=== PATIENT | female | born 1950 | race Caucasian/White ===

== ENCOUNTER 2018-10-24 06:44 | Day surgery (SDC) | payer MEDICARE ==
[~2018-10-24] VITALS: Ht 177.8 cm; Wt 121.0 kg
[2018-10-24] MEDS ORDERED: Omeprazole20 M1 (07:48)
[2018-10-24] MEDS ORDERED: HYDCHL12.5 (07:48)
[2018-10-24] MEDS ORDERED: VENL75ER (07:49)
[2018-10-24] MEDS ORDERED: ATOR20 (07:49)
[2018-10-24] MEDS ORDERED: 24HR ALLERGY REL5 MG (07:49)
[2018-10-24] MEDS ORDERED: ASPI81CH (07:50)
[2018-10-24] MEDS ORDERED: PRED20 (07:51)
--- NOTE | 2018-10-24 13:21 | NUR ---
PT DRESSED, IV DC'D TIP INTACT, R RADIAL ACCESS SITE DRESSING IN PLACE WITH SPLINT TO R WRIST, PT DC'D BY WC WITH DRIVING PT HOME
== END 2018-10-24 13:27 | disposition home or self-care (01) ==
LOC: MHTC 06:44
DX: R94.39 Abnormal result of other cardiovascular function study (principal); R07.9 Chest pain, unspecified; I10 Essential (primary) hypertension; E78.5 Hyperlipidemia, unspecified; E66.01 Morbid (severe) obesity due to excess calories; K21.9 Gastro-esophageal reflux disease without esophagitis; Z91.041 Radiographic dye allergy status; Z79.899 Other long term (current) drug therapy; Z79.82 Long term (current) use of aspirin; Z87.891 Personal history of nicotine dependence
CPT/HCPCS: 93458; 99152; 99153; C1769; C1894; J1200; J1644; J1720; J2250; J3010; J3490; J7030; Q9967

== ENCOUNTER 2020-09-09 08:34 | Day surgery (SDC) | payer OTHER ==
[~2020-09-09] VITALS: Ht 177.8 cm; Wt 123.7 kg
[~2020-09-09 08:34] MED LIST: 24HR ALLERGY REL5 MG; ASPI81CH; ATOR20; HYDCHL12.5; Hydrochloroth12.5 MG PO; LEVOCETIRIZINE D5 MG PO; LORA1 PO; OMEPRAZOLE MAGN20 MG PO; Omeprazole20 M1; PRED20; VENL75ER
[2020-09-09] MEDS ORDERED: OXYM.05NI (09:18)
[2020-09-09] MEDS ORDERED: MAGCHL64ER (09:19)
[2020-09-09] MEDS ORDERED: CALCIUM 600 +1 EA11 PO (09:20)
[2020-09-09] MEDS ORDERED: COQ-10100 MG PO (09:20)
[2020-09-09] MEDS ORDERED: MULVITA PO (09:21)
[2020-09-09] MEDS ORDERED: THERA-D2000 UNIT PO (09:21)
--- NOTE | 2020-09-09 09:40 | NUR ---
09/09/20 0940 Manohar Bell History, Chart, Medications and Allergies reviewed before start of procedure.MONITOR INTACT WITH CONTINUOUS PULSE OXIMETRY AND INTERMITTENT BP.3-LEAD EKG REVIEWED WITH PHYSICIAN PRIOR TO START OF PROCEDURE.O2 VIA N/C INTACT THROUGHOUT SEDATION/PROCEDURE.
--- NOTE | 2020-09-09 10:50 | NUR ---
D/C INSTRUCTIONS GIVEN, PT DENIES QUESTIONS. IV D/C'D, DRESSING APPLIED. PT TOLERATING PO INTAKE. PT UP TO SIDE OF BED. ABLE TO DRESS INDEPENDANTLY. PT OUT TO CAR VIA W/C. RIDE HOME.
[2020-11-06] MEDS ORDERED: Aspir 8181 MG PO (15:09)
[2020-11-06] MEDS ORDERED: MIRAPEX0.25 MG PO (15:10)
== END 2020-09-09 22:48 | disposition home or self-care (01) ==
LOC: ORSCMMR 08:34 → ORD 09:30 → ORSCMMR 22:48
PROVIDERS: Internal Medicine Gastroenterology
PROC: 0DBC8ZX Excision of Ileocecal Valve, Via Natural or Artificial Opening Endoscopic, Diagnostic (ICD-10-PCS; principal; 2020-09-09 09:30)
DX: Z12.11 Encounter for screening for malignant neoplasm of colon (principal); Z86.010 Personal history of colon polyps; D12.2 Benign neoplasm of ascending colon; K57.30 Diverticulosis of large intestine without perforation or abscess without bleeding; K64.8 Other hemorrhoids; K21.9 Gastro-esophageal reflux disease without esophagitis; G47.33 Obstructive sleep apnea (adult) (pediatric); Z79.899 Other long term (current) drug therapy; Z79.82 Long term (current) use of aspirin; E66.01 Morbid (severe) obesity due to excess calories; Z68.39 Body mass index [BMI] 39.0-39.9, adult
CPT/HCPCS: 88305; J2250; J3010; J7120

== ENCOUNTER 2020-11-13 07:37 | Day surgery (SDC) | payer OTHER ==
[~2020-11-13] VITALS: Ht 177.8 cm; Wt 127.4 kg
[~2020-11-13 07:37] MED LIST changes: +Aspir 8181 MG PO; +CALCIUM 600 +1 EA11 PO; +COQ-10100 MG PO; +MAGCHL64ER; +MIRAPEX0.25 MG PO; +MULVITA PO; +OXYM.05NI; +THERA-D2000 UNIT PO
[2020-11-13] MEDS ORDERED: HYDCHL12.5 PO (08:17)
== END 2020-11-13 10:32 | disposition home or self-care (01) ==
LOC: ORSCSDS 07:37
PROVIDERS: Orthopaedic Surgery
PROC: 0JBG0ZZ Excision of Right Lower Arm Subcutaneous Tissue and Fascia, Open Approach (ICD-10-PCS; principal; 2020-11-13 08:45)
PROC: 0LN70ZZ Release Right Hand Tendon, Open Approach (ICD-10-PCS; principal; 2020-11-13 08:45)
DX: D17.79 Benign lipomatous neoplasm of other sites (principal); M65.331 Trigger finger, right middle finger; M67.30 Transient synovitis, unspecified site; I10 Essential (primary) hypertension; G47.33 Obstructive sleep apnea (adult) (pediatric); K21.9 Gastro-esophageal reflux disease without esophagitis; E66.01 Morbid (severe) obesity due to excess calories; Z68.41 Body mass index [BMI] 40.0-44.9, adult; Z79.899 Other long term (current) drug therapy; F32.9 Major depressive disorder, single episode, unspecified
CPT/HCPCS: 88304; J0690; J1100; J1885; J2250; J2405; J2704; J3010; J7120

== ENCOUNTER → 2021-08-29 | Outpatient (CLI) | payer OTHER ==
[~2021-08-29] MED LIST changes: +HYDCHL12.5 PO
[2021-08-29 15:18] LABS: Percent Saturation 38.1 % (15.0-50.0)
== END | disposition home or self-care (01) ==
LOC: LAB SHORT 13:10
PROVIDERS: Internal Medicine Hematology & Oncology
DX: D64.9 Anemia, unspecified (principal); E53.8 Deficiency of other specified B group vitamins
CPT/HCPCS: 82607; 82728; 82746; 83540; 83550

== ENCOUNTER 2021-12-03 07:32 | Day surgery (SDC) | payer OTHER ==
[~2021-12-03] VITALS: Ht 177.8 cm; Wt 131.9 kg
[~2021-12-03 07:32] MED LIST changes: +ALBU90OI; +ATOR40TA PO; +ATROVENT HFA12.9 GM; +Amlodipine Besyl5 MG PO; +EXTRA PAIN REL1 EAC2 PO; +Ferrous Sulfat325 MG PO; +Fluocinonide60 ML; +HORIZANT600 MG PO; +NAPR500EC PO; +NASACORT10.8 ML; +NITR.4SL SL; +REDNESS RELIEVE15 M1
== END 2021-12-03 10:14 | disposition home or self-care (01) ==
LOC: ORSCSDS 07:32
PROVIDERS: Orthopaedic Surgery
PROC: 01N54ZZ Release Median Nerve, Percutaneous Endoscopic Approach (ICD-10-PCS; principal; 2021-12-03 09:00)
DX: G56.01 Carpal tunnel syndrome, right upper limb (principal); I10 Essential (primary) hypertension; R01.1 Cardiac murmur, unspecified; G47.33 Obstructive sleep apnea (adult) (pediatric); K21.9 Gastro-esophageal reflux disease without esophagitis; E66.9 Obesity, unspecified; Z68.41 Body mass index [BMI] 40.0-44.9, adult; Z79.82 Long term (current) use of aspirin; Z79.899 Other long term (current) drug therapy
CPT/HCPCS: J2250; J3010; J7120

== ENCOUNTER 2022-01-14 10:08 | Day surgery (SDC) | payer OTHER ==
[~2022-01-14] VITALS: Ht 177.8 cm; Wt 126.5 kg
--- NOTE | 2022-01-14 11:44 | NUR ---
01/14/22 [address] ADAMES IN PREOP WITH PT. DR. CORDERO IN ROOM WITH PT. DOING BLOCK ON LEFT HAND. PT. TOLERATED WELL. PULSE OX INTACT DURING BLOCK PROCEDURE.
--- NOTE | 2022-01-14 12:40 | NUR ---
01/14/22 1240 AJ SERRATO ASSISTED PT W/DRESSING
== END 2022-01-14 12:35 | disposition home or self-care (01) ==
LOC: ORSCSDS 10:08
PROVIDERS: Orthopaedic Surgery
PROC: 01N54ZZ Release Median Nerve, Percutaneous Endoscopic Approach (ICD-10-PCS; principal; 2022-01-14 11:30)
DX: G56.02 Carpal tunnel syndrome, left upper limb (principal); I10 Essential (primary) hypertension; G47.33 Obstructive sleep apnea (adult) (pediatric); E61.1 Iron deficiency; Z79.82 Long term (current) use of aspirin; Z87.891 Personal history of nicotine dependence; Z79.899 Other long term (current) drug therapy
CPT/HCPCS: J2250; J2704; J3010; J7120

== ENCOUNTER 2023-08-03 13:05 | Emergency (ER) | payer OTHER ==
[~2023-08-03] VITALS: Ht 177.8 cm; Wt 117.9 kg
[~2023-08-03 13:05] MED LIST changes: +TRITOCIN430 GM
[2023-08-03 13:19] VITALS: BP 146/70
[2023-08-03] MEDS ORDERED: AMOCLA875 PO (13:39)
== END 2023-08-03 13:45 | disposition home or self-care (01) ==
LOC: ER 13:05
DX: K57.92 Diverticulitis of intestine, part unspecified, without perforation or abscess without bleeding (principal); C91.10 Chronic lymphocytic leukemia of B-cell type not having achieved remission; Z87.891 Personal history of nicotine dependence; Z79.899 Other long term (current) drug therapy
CPT/HCPCS: 99283

== ENCOUNTER 2023-08-29 06:40 | Inpatient (IN) | payer OTHER ==
[~2023-08-29] VITALS: Ht 177.8 cm; Wt 116.1 kg
[~2023-08-29 06:40] MED LIST changes: +AMOCLA875 PO; -REDNESS RELIEVE15 M1; +REDNESS RELIEVE15 M1 BOTHEYES; -VENL75ER; +VENL75ER PO
[2023-08-29 07:16] LABS: Hematocrit 41.9 % (33.0-51.0); Mean Corpuscular HGB 28.7 pg (26.0-34.0); Mean Corpuscular HGB Conc 33.4 g/dL (31.5-36.5); Mean Corpuscular Volume 86 fL (80-100); Mean Platelet Volume 10.4 fL (9.1-12.4); Platelet Count 283 K/mm3 (150-400); RDW Coefficient Variation 12.9 % (11.7-14.2); Red Blood Cell Count 4.87 M/mm3 (3.80-5.20); White Blood Cell Count 31.73 K/mm3 (4.00-11.30)
[2023-08-29 07:40] LABS: Albumin, Blood 3.5 g/dL (3.4-5.0); Bilirubin, Total 0.3 mg/dL (0.1-1.0); Bun/Creatinine Ratio 12.5 (12.0-20.0); Calcium, Blood 8.9 mg/dL (8.5-10.1); Creatinine, Blood 0.88 mg/dL (0.40-1.00); Globulin, Blood 3.4 g/dL (2.2-4.0); Potassium, Blood 3.7 mmol/L (3.5-5.5); Total Protein, Blood 6.9 g/dL (6.4-8.2)
[2023-08-29 08:14] LABS: BASOPHILS PERCENT MAN 0 % (0-2); EOSINOPHILS PERCENT MAN 0 % (0-6); LYMPHOCYTES % ATYPICAL MANUAL 1 % (0-0); LYMPHOCYTES ABSOLUTE MAN 22.52 K/mm3 (0.84-5.20); LYMPHOCYTES PERCENT MAN 70 % (21-46); MONOCYTES ABSOLUTE MAN 1.58 K/mm3 (0.16-1.47); MONOCYTES PERCENT MAN 5 % (4-13); NEUTROPHILS ABSOLUTE MAN 7.61 K/mm3 (1.96-9.15); SEG NEUTROPHILS PERCENT MAN 24 % (41-73); TOTAL CELLS COUNTED 100
[2023-08-29] MEDS ORDERED: OMEP20ER PO (10:39)
--- NOTE | 2023-08-29 14:03 | NUR ---
REPORT RECEIVED FROM MATHEUS IN ED.
[2023-08-29 14:27] VITALS: BP 117/85
--- NOTE | 2023-08-29 15:08 | NUR ---
CALL FROM LESTER IN TELEMETRY: TACHY INTO [address]s. [address] DR PONCE, NEEDS TO GO TO PCU FOR KAYLA CAMPOS. CHARGE NURSE, ANGELA, NOTIFIED.
--- NOTE | 2023-08-29 15:48 | NUR ---
ASSUMPTION OF CARE PT TO PCU FROM MEDICAL FLOOR AT APPROX 1548. PT AOX4 VSS. RHYTHM AFIB RATE 90s-110S UPON ARRIVAL TO UNIT. PT REPORTS SOB WITH EXERTION. SPO2>92% ON RA. PT DENIES CHEST PAIN OR PRESSURE. PT DENIES MERINO.
[2023-08-29 16:00] VITALS: BP 115/72
[2023-08-29 16:02] LABS: Anti-Xa UFH, PHA Monitoring <0.10 IU/mL; International Normalized Ratio 1.01; Prothrombin Time Results 10.6 Sec (9.7-11.5)
[2023-08-29 16:03] VITALS: BP 115/72
[2023-08-29 16:15] VITALS: BP 119/86
[2023-08-29 16:30] VITALS: BP 107/77
--- NOTE | 2023-08-29 17:49 | NUR ---
SHIFT SUMMARY PT AOX4. VSS. HEART RHYTHM AFIB/AFLUTTER RATE 90s. PT DENIES CHEST PAIN/PRESSURE REPORTS FEELING HEART PALPITATIONS. NO ACUTE CHANGES.
[2023-08-29 20:40] VITALS: BP 117/86
[2023-08-30] VITALS (7 sets, daily range): BP systolic 119–138; BP diastolic 74–93
[2023-08-30 06:15] LABS: BASOPHILS ABSOLUTE AUTO 0.08 K/mm3 (0.00-0.23); BASOPHILS PERCENT AUTO 0 % (0-2); EOSINOPHILS ABSOLUTE AUTO 0.02 K/mm3 (0.00-0.68); EOSINOPHILS PERCENT AUTO 0 % (0-6); Hematocrit 40.8 % (33.0-51.0); Hemoglobin 13.9 g/dL (11.5-16.0); Mean Corpuscular HGB Conc 34.1 g/dL (31.5-36.5); Mean Corpuscular Volume 85 fL (80-100); Mean Platelet Volume 10.6 fL (9.1-12.4); Platelet Count 292 K/mm3 (150-400); RDW Coefficient Variation 12.9 % (11.7-14.2); RDW Standard Deviation 39.8 fL (35.1-46.3); White Blood Cell Count 38.29 K/mm3 (4.00-11.30)
[2023-08-30 06:27] LABS: IMMATURE GRAN ABSOLUTE AUTO 0.15 K/mm3 (0.00-0.10); IMMATURE GRAN PERCENT AUTO 0 % (0-1); LYMPHOCYTES ABSOLUTE AUTO 25.28 K/mm3 (0.84-5.20); LYMPHOCYTES PERCENT AUTO 66 % (21-46); MONOCYTES ABSOLUTE AUTO 1.51 K/mm3 (0.16-1.47); MONOCYTES PERCENT AUTO 4 % (4-13); NEUTROPHILS ABSOLUTE AUTO 11.25 K/mm3 (1.96-9.15); NEUTROPHILS PERCENT AUTO 29 % (41-73)
[2023-08-30 06:39] LABS: Albumin, Blood 3.4 g/dL (3.4-5.0); Bilirubin, Total 0.4 mg/dL (0.1-1.0); Bun/Creatinine Ratio 18.2 (12.0-20.0); Calcium, Blood 9.1 mg/dL (8.5-10.1); Creatinine, Blood 0.66 mg/dL (0.40-1.00); Globulin, Blood 3.5 g/dL (2.2-4.0); Magnesium, Blood 2.3 mg/dL (1.6-2.4); Phosphorus, Blood 3.2 mg/dL (2.5-4.9); Potassium, Blood 4.2 mmol/L (3.5-5.5); Total Protein, Blood 6.9 g/dL (6.4-8.2)
--- NOTE | 2023-08-30 06:48 | NUR ---
SHIFT SUMMARY A/Ox4 AND COOPERATIVE WITH CARE. ANSWERS QUESTIONS APPROPRIATELY AND ABLE TO MAKE HER NEEDS KNOWN. NO ACUTE EVENTS OVERNIGHT FOR PT WAS ABLE TO GET INTERMITTENT SLEEP THROUGHOUT THE NIGHT. CARDIAC, REMAINS IN AFIB RANGING 80-110 S WITH NO REPORTS OF CP OR PRESSURE THROUGHOUT THE NIGHT. HR DOES CLIMB INTO THE 140-150'S WITH MODERATE EXERTION. PT IS SYMPTOMATIC DURING THESE EVENTS REPORTING PALPITATIONS AND SOME MINOR DIZZINESS. SBP HAS BEEN STABLE RANGING 110-140'S. RESPIRATORY, MAINTAINS SPO2 >92% ON RA WITH NO REPORTS OF SOB OR DYSPNEA AT REST. DOES USE A CPAP AT [facility]. GI/, SBA ASSIST TO BSC VOIDING YELLOW URINE/ NO BM THIS SHIFT. DENIES ANY N/V/D. PAIN MANAGED PER [facility]. HEPARIN gtt IS MANAGED BY PHARMACY AND HAS BEEN INFUSING THROUGHOUT THE NIGHT ORDERED. MARE PATIÑO OF THIS NOTE.
--- NOTE | 2023-08-30 10:42 | NUR ---
AM NOTES; PT REMAINS ALERT AND ORIENTED, NEURO'S WNL. PT DENIES MERINO/N/V. HAS SOME ABDOMINAL TENDERNESS POSS FROM CONSTIPATION PER PT, ADDRESSED TO THE PROVIDER WILL START BOWEL CARE AT THIS TIME. PT ABLE TO WORK WITH PHYSICAL THERAPIST WELL NO ISSUES AT THIS TIME, HRR REMAINS AFIB TACHS UP TO 110'S WITH EXERTION. PT REPORTS FEELING FATIGUED AFTER BED BATH WAS GIVEN THIS MORNING. TYLENOL WAS GIVEN THIS MORNING FOR ABD/BACK PAIN PT REPORTS EFFECTIVENESS. THE REST OF THE VITALS REMAINED STABLE. PT ON RA, RESPIRATIONS EVEN AND UNLABORED. HEPARIN GTT STILL INFUSING AT 15U/KG/HR. WILL CONTINUE TO MONITOR
--- NOTE | 2023-08-30 18:38 | NUR ---
PT SUMMARY: SEE PREVIOUS NOTE; NO ACUTE CHANGE FOR THE SHIFT, PT HAS BEEN COOPERATIVE AND PLEASANT. HRR REMAINED AFIB RATE 80-110'S METOPROLOL INCREASED TO 25MG BID, SBP 120'S, SATS ABOVE 95% ON RA, AFEBRILE. PT ABLE TO AMBULATE IN HE HALLWAY VIA WALKER PT FEELING TIRED RESTED IN BED AFTER. PT ABD PAIN WAS RELIEVED AFTER PT VOIDED 1L OF URINE THIS MORNING, MIRALAX WITH PRUNE JUICE WAS GIVEN FOR BOWEL CARE WITH NO RESULT PT WOULD LIKE ANOTHER MIRALAX BEFORE BEDTIME. NO OTHER ISSUES ENCOUNTERED, HEP GTT STILL AT 15U/KG/HR. WILL REPORT TO ONCOMING SHIFT
[2023-08-31 03:29] VITALS: BP 123/85
[2023-08-31 04:10] LABS: BASOPHILS ABSOLUTE AUTO 0.13 K/mm3 (0.00-0.23); BASOPHILS PERCENT AUTO 0 % (0-2); EOSINOPHILS PERCENT AUTO 1 % (0-6); Hematocrit 41.5 % (33.0-51.0); Hemoglobin 13.7 g/dL (11.5-16.0); Mean Corpuscular HGB 28.7 pg (26.0-34.0); Mean Corpuscular Volume 87 fL (80-100); Mean Platelet Volume 11.2 fL (9.1-12.4); Platelet Count 278 K/mm3 (150-400); Red Blood Cell Count 4.77 M/mm3 (3.80-5.20); White Blood Cell Count 35.07 K/mm3 (4.00-11.30)
[2023-08-31 04:11] LABS: IMMATURE GRAN ABSOLUTE AUTO 0.08 K/mm3 (0.00-0.10); IMMATURE GRAN PERCENT AUTO 0 % (0-1); LYMPHOCYTES ABSOLUTE AUTO 26.82 K/mm3 (0.84-5.20); LYMPHOCYTES PERCENT AUTO 77 % (21-46); MONOCYTES ABSOLUTE AUTO 1.56 K/mm3 (0.16-1.47); MONOCYTES PERCENT AUTO 4 % (4-13); NEUTROPHILS ABSOLUTE AUTO 6.28 K/mm3 (1.96-9.15); NEUTROPHILS PERCENT AUTO 18 % (41-73)
--- NOTE | 2023-08-31 05:49 | NUR ---
SHIFT SUMMARY A/Ox4 AND COOPERATIVE WITH CARE. ANSWERS QUESTIONS APPROPRIATELY AND ABLE TO MAKE HER NEEDS KNOWN. NO ACUTE EVENTS OVERNIGHT FOR PT WAS ABLE TO GET MORE SLEEP DURING THE NIGHT WHEN COMPARED TO PREVIOUS NOC SHIFT. CARDIAC, REMAINS IN AFIB RANGING 70-110'S WITH NO REPORTS OF CP OR PRESSURE THROUGHOUT THE NIGHT. HR CONTINUES TO CLIMB WITH EXERTION, BUT TYPICALLY RANGING 120-130'S. SBP HAS BEEN STABLE RANGING 120-130'S. RESPIRATORY, MAINTAINS SPO2 >95% ON RA WITH NO REPORTS OF SOB OR DYSPNEA AT REST. USES CPAP WHEN SLEEPING AND IS VERY COMPLIANT. GI/, REMAINS A SBA TO THE BATHROOM VOIDING YELLOW URINE THROUGHOUT THE NIGHT. NO BM THIS SHIFT. CONTINUES TO REPORT FEELING OF CONSTIPATION, PRN MIRALAX GIVEN PER EMAR. HEPARIN gtt IS MANAGED BY PHARMACY AND HAS BEEN INFUSING THROUGHOUT THE NIGHT ORDERED. MARE PATIÑO OF THIS NOTE.
[2023-08-31 06:04] LABS: Albumin, Blood 3.3 g/dL (3.4-5.0); Bilirubin, Total 0.2 mg/dL (0.1-1.0); Bun/Creatinine Ratio 16.2 (12.0-20.0); Calcium, Blood 8.8 mg/dL (8.5-10.1); Creatinine, Blood 0.93 mg/dL (0.40-1.00); Free Thyroxine 1.12 ng/dL (0.70-1.60); Globulin, Blood 3.3 g/dL (2.2-4.0); Potassium, Blood 4.4 mmol/L (3.5-5.5); Thyroid Stimulating Hormone 3.51 uIU/mL (0.360-4.800); Total Protein, Blood 6.6 g/dL (6.4-8.2)
[2023-08-31 08:24] VITALS: BP 133/99
--- NOTE | 2023-08-31 10:06 | NUR ---
AM NOTE: PATIENT ALERT AND ORIENTED. PERRLA, WEARING GLASSES. DENIES NUMBNESS/TINGLING. MOVING ALL EXTREMITIES WNL. DENIES OVERALL PAIN. IND AT BASELINE. USING WALKER WITH SBA TO HELP MANAGE CORDS. TELE SHOWING AFIB WITH HR 70-90'S AT REST, UP TO 140'S THIS AM WHEN UP TO BATHROOM. SOB WITH ELEVATED HR. DENIES FEELING DIZZY WITH ELEVATED HR. BP STABLE. DENIES CHEST PAIN/PRESSURE/PALPITATIONS. PPP. NO EDEMA NOTED. HEPARIN GTT INFUSING PER EMAR. PO METOPROLOL GIVEN THIS AM PER EMAR. ECHO COMPLETED THIS AM. ON ROOM AIR SATING ABOVE 95%. LUNGS SOUNDING CLEAR AND DIM. DENIES SOB/COUGH. EVEN AND UNLABORED RESPIRATIONS AT REST. SOB WHEN UP WALKING. BOWEL TONES PRESENT EATING AND VOIDING WNL. DENIES ABDOMINAL PAIN/NAUSEA. PATIENT STATES HISTORY OF HIATAL HERNIA. SKIN OVERALL C/D/I. DENIES NEEDS AT THIS TIME. SITTING IN BED WITH PERSONAL TABLET TALKING WITH ON PHONE. CALL LIGHT IN REACH.
[2023-08-31 11:04] VITALS: BP 138/86
[2023-08-31] MEDS ORDERED: XYZAL5 MG PO (14:06)
[2023-08-31] MEDS ORDERED: NITR.4SL SL (14:09)
--- NOTE | 2023-08-31 14:19 | NUR ---
PATIENT UP TO BATHROOM THIS AFTERNOON, HR UP TO 120'S AND PATIENT NONSYMPTOMATIC POST INCREASE OF PO METOPROLOL. COMPARED TO THIS AM PATIENT HR UP TO 140'S AND SOB WITH ELEVATED HR.
[2023-08-31 15:53] VITALS: BP 110/87
--- NOTE | 2023-08-31 17:43 | NUR ---
SHIFT SUMMARY: NO ACUTE CHANGES, SEE PREVIOUS NOTES. PATIENT REMAINS ALERT AND ORIENTED. TELE CONTINUES TO SHOW AFIB WITH HR 70-90'S AT REST, UP TO 120'S LATER AFTERNOON WHEN UP TO BATHROOM. PO METOPROLOL GIVEN PER EMAR WELL PO ELIQUIS. IV'S SALINE LOCKED. REMAINS ON ROOM AIR. EATING AND VOIDING WNL. BOWEL MOVEMENT X1 THIS SHIFT. EATING DINNER AT THIS TIME. TO BEDSIDE THIS AFERNOON AND UPDATED. BROUGHT IN PATIENTS HOME CPAP. CALL LIGHT IN REACH.
[2023-08-31 20:33] VITALS: BP 112/66
[2023-08-31 23:09] VITALS: BP 118/83
[2023-09-01 04:11] VITALS: BP 118/86
[2023-09-01 04:23] LABS: Hematocrit 42.1 % (33.0-51.0); Hemoglobin 13.9 g/dL (11.5-16.0); Mean Corpuscular HGB 28.5 pg (26.0-34.0); Mean Corpuscular Volume 86 fL (80-100); Mean Platelet Volume 10.7 fL (9.1-12.4); Platelet Count 279 K/mm3 (150-400); RDW Coefficient Variation 13.2 % (11.7-14.2); RDW Standard Deviation 40.9 fL (35.1-46.3); Red Blood Cell Count 4.87 M/mm3 (3.80-5.20); White Blood Cell Count 31.24 K/mm3 (4.00-11.30)
[2023-09-01 05:24] LABS: Albumin, Blood 3.3 g/dL (3.4-5.0); Albumin/Globulin Ratio 1.1 (0.8-1.8); Bilirubin, Total 0.4 mg/dL (0.1-1.0); Bun/Creatinine Ratio 14.9 (12.0-20.0); Calcium, Blood 9.2 mg/dL (8.5-10.1); Creatinine, Blood 0.87 mg/dL (0.40-1.00); Globulin, Blood 3.1 g/dL (2.2-4.0); Potassium, Blood 4.4 mmol/L (3.5-5.5); Total Protein, Blood 6.4 g/dL (6.4-8.2)
--- NOTE | 2023-09-01 06:31 | NUR ---
SHIFT SUMMARY A/Ox4 AND COOPERATIVE WITH CARE. ANSWERS QUESTIONS APPROPRIATELY AND ABLE TO MAKE HER NEEDS KNOWN. NO ACUTE EVENTS OVERNIGHT FOR PT WAS ABLE TO SLEEP THROUGHOUT MOST OF THE NIGHT. CARDIAC, REMAINS IN AFIB RANGING 70-110'S WITH NO REPORTS OF CP OR PRESSURE THROUGHOUT THE NIGHT. HR NOTED TO CLIMB INTO THE 140'S WITH AMBULATION TO THE BATHROOM. ONE INSTANCE WHEN THIS HAPPENED, PT BECOME VERY SYMPTOMATIC REPORTING DIZZINESS, WEAKNESS, AND SLIGHT NAUSEA. FULL SET OF VITALS TAKEN WITH ALL BEING WNL. THESE SYMPTOMS DISSIPATED WITH A SHORT REST IN THE BED. DECLINES OVER FOR ZOFRAN. SBP HAS BEEN STABLE RANGING 110'S. RESPIRATORY, MAINTAINS SPO2 >95% ON RA WITH NO REPORTS OF SOB OR DYSPNEA AT REST. USES CPAP WHEN SLEEPING AND IS VERY COMPLIANT. GI/, REMAINS A SBA TO THE BATHROOM VOIDING YELLOW URINE THROUGHOUT THE NIGHT. NO BM THIS SHIFT. NO NEW ORDERS AT THIS TIME. MARE PATIÑO OF THIS NOTE.
[2023-09-01 06:35] LABS: BASOPHILS PERCENT MAN 0 % (0-2); EOSINOPHILS ABSOLUTE MAN 0.31 K/mm3 (0.00-0.68); EOSINOPHILS PERCENT MAN 1 % (0-6); LYMPHOCYTES % ATYPICAL MANUAL 2 % (0-0); LYMPHOCYTES ABSOLUTE MAN 23.11 K/mm3 (0.84-5.20); LYMPHOCYTES PERCENT MAN 72 % (21-46); MONOCYTES ABSOLUTE MAN 0.62 K/mm3 (0.16-1.47); MONOCYTES PERCENT MAN 2 % (4-13); NEUTROPHILS ABSOLUTE MAN 7.18 K/mm3 (1.96-9.15); SEG NEUTROPHILS PERCENT MAN 23 % (41-73); TOTAL CELLS COUNTED 100
[2023-09-01 07:54] VITALS: BP 112/89
[2023-09-01 09:17] VITALS: BP 103/76
[2023-09-01] MEDS ORDERED: METO50ER PO (11:10)
[2023-09-01] MEDS ORDERED: XARELTO20 MG PO (11:10)
--- NOTE | 2023-09-01 11:14 | NUR ---
AM NOTES; PT HRR REMAINED AFIB 70-90'S AT REST, SBP 100-110'S, SATS ABOVE 95% ON RA, AFEBRILE. PT DENIES ANY NAUSEA AND DIZZINESS THIS MORNING, ELIQUIS SWITCHED TO XARELTO, NO COMPLAINTS AT THIS TIME, DENIES CHEST PAIN/PRESSURE. PT AMBULATED AROUND THE UNIT HRR TACHED UP TO 140'S WITH NO SYMPTOMS, DR SCHMID CALLED AND MADE AWARE, HRR TREND DOWN RIGHT WHEN PT RESTED BACK IN BED CURRENT RATE 90'S. PT TO POSSBILE DISCHARGE TODAY IF HRR IS STABLE. PT AWARE OF THE PLAN DR SCHMID CAME IN 3 TIMES THIS MORNING TO DISCUSS PLAN WITH THE PT. WILL CONTINUE TO MONITOR T/O SHIFT
[2023-09-01] MEDS ORDERED: METO25 PO (11:24)
[2023-09-01 11:43] VITALS: BP 119/79
--- NOTE | 2023-09-01 13:03 | NUR ---
PT DISCHARGE TO HOME WITH DISCHARGE ORDERS. ALL NEW MEDICATIONS AND DISCHARGE INSTRUCTIONS DISCLOSED WITH THE PT, PT VERBALIZED UNDERSTANDING. PT HAS BEEN AMBULATING IN THE ROOM HRR STAYED IN THE 90-120'S, PT REPORTS NO SYMPTOMS. SBP 110'S, [place] ABOVE 90% ON RA, AFEBRILE. ALL BELONGINGS SENT WITH THE PT, ACCOMPANIED VIA WHEELCHAIR FOR TRANSPORT
== END 2023-09-01 12:39 | disposition home or self-care (01) | DRG 309 ==
LOC: ER 06:40 → MEDS 06:41 → PCU 06:41 → MEDS 14:22 → PCU 15:49
PROVIDERS: Emergency Medicine; Family Medicine; ADMIT Hospitalist
DX: I48.91 Unspecified atrial fibrillation (principal); C91.10 Chronic lymphocytic leukemia of B-cell type not having achieved remission; G47.33 Obstructive sleep apnea (adult) (pediatric); K21.9 Gastro-esophageal reflux disease without esophagitis; R55 Syncope and collapse; I10 Essential (primary) hypertension; M32.9 Systemic lupus erythematosus, unspecified; J44.9 Chronic obstructive pulmonary disease, unspecified; Z86.711 Personal history of pulmonary embolism; Z87.891 Personal history of nicotine dependence
CPT/HCPCS: 36415; 71045; 74177; 80053; 82947; 83735; 83880; 84100; 84439; 84443; 84484; 85025; 85520; 85610; 85730; 93005; 93010; 93306; 94660; 94762; 96361; 96374-59; 96375; 97116; 97162; 97530; 99285-25; A9270; G0378; J1100; J1200; J1644; J7030; Q9967

== ENCOUNTER → 2024-08-01 | Outpatient (CLI) | payer OTHER ==
[~2024-08-01] MED LIST changes: +METO25 PO; +METO50ER PO; +OMEP20ER PO; +XARELTO20 MG PO; +XYZAL5 MG PO
[2024-08-01 18:48] LABS: Hematocrit 40.1 % (33.0-51.0); Hemoglobin 13.3 g/dL (11.5-16.0); Mean Corpuscular HGB 29.6 pg (26.0-34.0); Mean Corpuscular HGB Conc 33.2 g/dL (31.5-36.5); Mean Corpuscular Volume 89 fL (80-100); Mean Platelet Volume 11.7 fL (9.1-12.4); Platelet Count 198 K/mm3 (150-400); RDW Coefficient Variation 13.2 % (11.7-14.2); RDW Standard Deviation 42.9 fL (35.1-46.3); Red Blood Cell Count 4.49 M/mm3 (3.80-5.20); White Blood Cell Count 32.17 K/mm3 (4.00-11.30)
[2024-08-01 19:34] LABS: BASOPHILS PERCENT MAN 0 % (0-2); EOSINOPHILS ABSOLUTE MAN 0.32 K/mm3 (0.00-0.68); EOSINOPHILS PERCENT MAN 1 % (0-6); LYMPHOCYTES ABSOLUTE MAN 27.34 K/mm3 (0.84-5.20); LYMPHOCYTES PERCENT MAN 85 % (21-46); MONOCYTES ABSOLUTE MAN 0.64 K/mm3 (0.16-1.47); MONOCYTES PERCENT MAN 2 % (4-13); NEUTROPHILS ABSOLUTE MAN 3.86 K/mm3 (1.96-9.15); SEG NEUTROPHILS PERCENT MAN 12 % (41-73); TOTAL CELLS COUNTED 100
== END | disposition home or self-care (01) ==
LOC: LAB 18:21 → LAB SHORT 18:21
PROVIDERS: Internal Medicine Hematology & Oncology
DX: C91.10 Chronic lymphocytic leukemia of B-cell type not having achieved remission (principal)
CPT/HCPCS: 85025

== ENCOUNTER → 2024-10-31 | Outpatient (CLI) | payer OTHER ==
[2024-10-31 15:06] LABS: BASOPHILS ABSOLUTE AUTO 0.13 K/mm3 (0.00-0.23); BASOPHILS PERCENT AUTO 0 % (0-2); EOSINOPHILS PERCENT AUTO 1 % (0-6); Hematocrit 41.8 % (33.0-51.0); Hemoglobin 13.7 g/dL (11.5-16.0); IMMATURE GRAN ABSOLUTE AUTO 0.06 K/mm3 (0.00-0.10); IMMATURE GRAN PERCENT AUTO 0 % (0-1); Mean Corpuscular HGB 29.3 pg (26.0-34.0); Mean Corpuscular HGB Conc 32.8 g/dL (31.5-36.5); Mean Corpuscular Volume 90 fL (80-100); Mean Platelet Volume 10.7 fL (9.1-12.4); NEUTROPHILS ABSOLUTE AUTO 3.94 K/mm3 (1.96-9.15); NEUTROPHILS PERCENT AUTO 10 % (41-73); Platelet Count 148 K/mm3 (150-400); RDW Coefficient Variation 12.9 % (11.7-14.2); RDW Standard Deviation 42.5 fL (35.1-46.3); Red Blood Cell Count 4.67 M/mm3 (3.80-5.20); White Blood Cell Count 40.65 K/mm3 (4.00-11.30)
[2024-10-31 15:20] LABS: LYMPHOCYTES ABSOLUTE AUTO 34.01 K/mm3 (0.84-5.20); LYMPHOCYTES PERCENT AUTO 84 % (21-46); MONOCYTES ABSOLUTE AUTO 2.31 K/mm3 (0.16-1.47); MONOCYTES PERCENT AUTO 6 % (4-13)
[2024-10-31 15:21] LABS: Albumin, Blood 3.7 g/dL (3.4-5.0); Albumin/Globulin Ratio 1.2 (0.8-1.8); Bilirubin, Total 0.5 mg/dL (0.1-1.0); Bun/Creatinine Ratio 14.8 (12.0-20.0); Calcium, Blood 9.1 mg/dL (8.5-10.1); Creatinine, Blood 0.81 mg/dL (0.40-1.00); Magnesium, Blood 2.1 mg/dL (1.6-2.4); Potassium, Blood 4.3 mmol/L (3.5-5.5); Total Protein, Blood 6.7 g/dL (6.4-8.2)
== END ==
LOC: LAB SHORT 15:00 → LAB 15:00
PROVIDERS: Chiropractor
DX: R07.89 Other chest pain (principal)
CPT/HCPCS: 80053; 83735; 83880; 84484; 85025

== ENCOUNTER 2025-03-08 21:33 | Emergency (ER) | payer OTHER ==
[~2025-03-08] VITALS: Ht 177.8 cm; Wt 111.1 kg
[2025-03-08 22:04] LABS: Hematocrit 42.4 % (33.0-51.0); Hemoglobin 13.9 g/dL (11.5-16.0); Mean Corpuscular HGB Conc 32.8 g/dL (31.5-36.5); Mean Corpuscular Volume 89 fL (80-100); NRBC ABSOLUTE 0.00 K/mm3 (0.00-0.02); NRBC Auto 0.0 /100 WBC (0.0-0.2); Platelet Count 87 K/mm3 (150-400); RDW Coefficient Variation 12.6 % (11.7-14.2); RDW Standard Deviation 41.1 fL (35.1-46.3)
[2025-03-08 22:14] LABS: Alanine Aminotransfer (ALT/SGP 44.0 U/L (12-78); Albumin, Blood 3.6 g/dL (3.4-5.0); Albumin/Globulin Ratio 1.1 (0.8-1.8); Anion Gap 7.0 mmol/L (3-11); Aspartate Aminotrans (AST/SGOT 27.0 U/L (12-37); Bilirubin, Total 0.2 mg/dL (0.1-1.0); Blood Urea Nitrogen 14.0 mg/dL (8-24); CO2, Blood 26.0 mmol/L (21-32); Calcium, Blood 8.5 mg/dL (8.5-10.1); Chloride, Blood 105.0 mmol/L (98-108); Creatinine, Blood 0.91 mg/dL (0.40-1.00); Globulin, Blood 3.3 g/dL (2.2-4.0); Glucose, Blood 116.0 mg/dL (70-99); Potassium, Blood 4.5 mmol/L (3.5-5.5); Sodium, Blood 133.0 mmol/L (136-145); Total Protein, Blood 6.9 g/dL (6.4-8.2)
[2025-03-08 23:27] LABS: BASOPHILS ABSOLUTE MAN 0.00 K/mm3 (0.00-0.23); BASOPHILS PERCENT MAN 0 % (0-2); EOSINOPHILS ABSOLUTE MAN 0.00 K/mm3 (0.00-0.68); EOSINOPHILS PERCENT MAN 0 % (0-6); LYMPHOCYTES ABSOLUTE MAN 54.83 K/mm3 (0.84-5.20); LYMPHOCYTES PERCENT MAN 87 % (21-46); MONOCYTES ABSOLUTE MAN 2.52 K/mm3 (0.16-1.47); MONOCYTES PERCENT MAN 4 % (4-13); NEUTROPHILS ABSOLUTE MAN 5.04 K/mm3 (1.96-9.15); OTHER CELL PERCENT MAN 1 % (0-0); SEG NEUTROPHILS PERCENT MAN 8 % (41-73)
[2025-03-08] MEDS ORDERED: NS 1,000 ML IV SCH (23:40)
[2025-03-09] LABS: Magnesium, Blood 2.1 mg/dL (1.6-2.4); Phosphorus, Blood 3.2 mg/dL (2.5-4.9)
[2025-03-09 01:55] VITALS: BP 122/77
== END 2025-03-09 01:58 | disposition home or self-care (01) ==
LOC: ER 21:33
PROVIDERS: Student in an Organized Health Care Education/Training Program
DX: I48.0 Paroxysmal atrial fibrillation (principal); D72.829 Elevated white blood cell count, unspecified; D69.6 Thrombocytopenia, unspecified; Z68.35 Body mass index [BMI] 35.0-35.9, adult; Z91.041 Radiographic dye allergy status; Z91.013 Allergy to seafood; Z88.8 Allergy status to other drugs, medicaments and biological substances; Z91.018 Allergy to other foods; Z79.899 Other long term (current) drug therapy; G47.30 Sleep apnea, unspecified; Z87.891 Personal history of nicotine dependence; Z79.82 Long term (current) use of aspirin; Z79.01 Long term (current) use of anticoagulants; Z90.710 Acquired absence of both cervix and uterus
CPT/HCPCS: 71046; 80053; 83690; 83735; 83880; 84100; 84484; 85025; 93005; 93010; 99285-25; J7030